=== PATIENT | male | born 1990 | race Hispanic/Latino ===

== ENCOUNTER 2018-01-05 18:53 | Emergency (ER) | payer OTHER ==
[2018-01-05 18:53] VITALS: BMI 21.2
--- NOTE | 2018-01-05 19:18 | ED PDOC ---
Arrival/HPI <Elie Calderón - Last Filed: 01/06/18 06:34> - General Historian: Patient <AzucenaAxel A - Last Filed: 01/07/18 19:36> <Alo Peña - Last Filed: 01/08/18 08:05> - General Time Seen by Provider: 01/05/18 19:10 - History of Present Illness Narrative History of Present Illness (Text): 01/05/18 19:15 27yo male bib [facility] for psychiatric evaluation. PEr patient, the called [facility] and told them that he wants to commit suicide. He however denies SI/HI, hallucination, any somatic complaint. Although per the RN, [facility] states patient attempted suicide by trying to hang himself and he have abrasion on his neck. ( Axel Zeng A) Past Medical History - Provider Review Nursing Documentation Reviewed: Yes - Tetanus Immunization Tetanus Immunization: Unknown - Past Medical History Past Medical History: No Previous - Psychiatric Hx Depression: No Hx Emotional Abuse: No Hx Physical Abuse: No Hx Substance Use: Yes (CANNABIS) - Past Surgical History Past Surgical History: No Previous - Suicidal Assessment Feels Threatened In Home Enviroment: No <Axel Zeng A - Last Filed: 01/07/18 19:36> Family/Social History - Physician Review Nursing Documentation Reviewed: Yes Family/Social History: Unknown Family HX Hx Alcohol Use: No Hx Substance Use: Yes (CANNABIS) Hx Substance Use Treatment: No <Axel Zeng A - Last Filed: 01/07/18 19:36> Allergies/Home Meds <Elie Calderón - Last Filed: 01/06/18 06:34> <Axel Zeng A - Last Filed: 01/07/18 19:36> <Alo Peña - Last Filed: 01/08/18 08:05> Allergies/Adverse Reactions: Allergies No Known Allergies Allergy (Verified 12/04/11 16:55) Home Medications: Home Meds Medication Instructions Recorded Confirmed No Known Home Med 12/04/11 01/05/18 Review of Systems - Physician Review All systems were reviewed & negative as marked: Yes - Review of Systems Constitutional: Normal Eyes: Normal ENT: Normal Respiratory: Normal Cardiovascular: Normal Gastrointestinal: Normal Genitourinary Male: Normal Musculoskeletal: Normal Skin: Normal Neurological: Normal Endocrine: Normal Hemo/Lymphatic: Normal Psychiatric: Suicidal Ideation <Diru,Happiness A - Last Filed: 01/07/18 19:36> Physical Exam Vital Signs Reviewed: Yes Temperature: Afebrile Blood Pressure: Normal Pulse: Regular Respiratory Rate: Normal Appearance: Positive for: Well-Appearing, Non-Toxic, Comfortable Pain Distress: None Mental Status: Positive for: Alert and Oriented X 3 - Systems Exam Head: Present: Atraumatic, Normocephalic Pupils: Present: PERRL Extroacular Muscles: Present: EOMI Conjunctiva: Present: Normal Mouth: Present: Moist Mucous Membranes Neck: Present: Normal Range of Motion Respiratory/Chest: Present: Clear to Auscultation, Good Air Exchange. No: Respiratory Distress, Accessory Muscle Use Cardiovascular: Present: Regular Rate and Rhythm, Normal S1, S2. No: Murmurs Abdomen: No: Tenderness, Distention, Peritoneal Signs Back: Present: Normal Inspection Upper Extremity: Present: Normal Inspection. No: Cyanosis, Edema Lower Extremity: Present: Normal Inspection. No: Edema Neurological: Present: GCS=15, CN II-XII Intact, Speech Normal Skin: Present: Warm, Dry, Normal Color, Abrasion (Superficial linear abrasion noted on neck and nasal bridge. Healing abrasion also noted on right posterior distal upper arm). No: Rashes Psychiatric: Present: Alert, Oriented x 3, Normal Insight, Normal Concentration <Diru,Happiness A - Last Filed: 01/07/18 19:36> Vital Signs Temp Pulse Resp BP Pulse Ox 01/06/18 10:21 98.2 F 82 18 112/72 100 01/06/18 10:20 98.2 F 82 18 112/72 100 01/06/18 06:34 98.2 F 75 18 110/62 99 01/06/18 04:01 98.3 F 82 18 105/55 L 100 01/06/18 01:58 97.8 F 88 20 104/63 98 01/06/18 00:21 97.6 F 84 18 100/73 100 01/05/18 22:00 98.0 F 88 18 110/73 100 01/05/18 19:23 97.9 F 80 18 132/78 98 Medical Decision Making <Elie Calderón - Last Filed: 01/06/18 06:34> <Diru,Happiness A - Last Filed: 01/07/18 19:36> <MarianaAltagraciaDanechana - Last Filed: 01/08/18 08:05> ED Course and Treatment: 01/06/18 06:34 patient is indicated to be accepted by [facility]. (Elie Calderón) 01/05/18 19:33 EKG NSR @61bpm 01/05/18 21:21 PT was bib EMS for psychiatric evaluation s/p suicidal attempt. He was calm in ED. Lab reviewed. UDS + Cocaine and Marijuana. Medically cleared for psychiatric evaluation Chest xray- No acute disease He was seen in ED by [facility] screendes Apple, who DC with Dr. Nova and she wants pt to be screened by [facility]. 01/06/18 00:33 PT remain calm and comfortable in ED. He was endorsed to Dr. Stringer to f/u and dispo. (Axel Zeng A) - Lab Interpretations Lab Results: 01/05/18 19:24 01/05/18 19:24 Lab Results 01/05/18 22:01: Urine Opiates Screen Negative, Urine Methadone Screen Negative, Ur Barbiturates Screen Negative, Ur Phencyclidine Scrn Negative, Ur Amphetamines Screen Negative, U Benzodiazepines Scrn Negative, U Oth Cocaine Metabols Positive H, U Cannabinoids Screen Positive H 01/05/18 22:01: Urine Color Yellow, Urine Appearance Sl cloudy, Urine pH 7.0, Ur Specific [place] 1.010, Urine Protein Negative, Urine Glucose (UA) Negative, Urine Ketones Negative, Urine Blood Trace-intact H, Urine Nitrate Negative, Urine Bilirubin Negative, Urine Urobilinogen 1.0 H, Ur Leukocyte Esterase Negative, Urine RBC 1 - 3, Urine WBC Negative, Ur Epithelial Cells 0 - 2 01/05/18 19:24: Alcohol, Quantitative < 10 01/05/18 19:24: Salicylates < 1 L, Acetaminophen < 10.0 L 01/05/18 19:24: Sodium 140, Potassium 3.8, Chloride 103, Carbon Dioxide 29, Anion Gap 12, BUN 16, Creatinine 1.0, Est GFR ( Amer) > 60, Est GFR (Non- Af Amer) > 60, Random Glucose 88, Calcium 9.3, Magnesium 2.4 H, Total Bilirubin 1.1, AST 32, ALT 34, Alkaline Phosphatase 65, Total Protein 7.3, Albumin 4.4, Globulin 2.9, Albumin/Globulin Ratio 1.5 01/05/18 19:24: WBC 5.6, RBC 4.73, Hgb 14.6, Hct 41.9 L, MCV 88.6, MCH 30.9, MCHC 34.8, RDW 12.8, Plt Count 197, MPV 9.7, Gran % 57.0, Lymph % (Auto) 32.2, [place] % (Auto) 8.9 H, Eos % (Auto) 1.2 L, Baso % (Auto) 0.7, Gran # 3.20, Lymph # (Auto) 1.8, [place] # (Auto) 0.5, Eos # (Auto) 0.1, Baso # (Auto) 0.04 - RAD Interpretation Radiology Orders: 01/05/18 19:24 CHEST PORTABLE [RAD] Stat - PA / [employer] TILE FLOOR LAYER / Resident Statement MD/DO has reviewed & agrees with the documentation as recorded. <Alo Peña - Last Filed: 01/08/18 08:05> Disposition/Present on Arrival <Elie Calderón - Last Filed: 01/06/18 06:34> - Present on Arrival Any Indicators Present on Arrival: No History of DVT/PE: No History of Uncontrolled Diabetes: No Urinary Catheter: No History of Decub. Ulcer: No History Surgical Site Infection Following: None - Disposition Have Diagnosis and Disposition been Completed?: Yes Disposition Time: 04:00 <Axel Zeng - Last Filed: 01/07/18 19:36> <Alo Peña - Last Filed: 01/08/18 08:05> - Disposition Diagnosis: Suicidal ideation Disposition: HOME/ ROUTINE Condition: GOOD Discharge Instructions (ExitCare): Suicide Prevention Additional Instructions: DELMI MURPHY, thank you for letting us take care of you today. Your provider was Chary Choudhury MD and you were treated for PSYCH EVAL. The emergency medical care you received today was directed at your acute symptoms. If you were prescribed any medication, please fill it and take as directed. It may take several days for your symptoms to resolve. Return to the Emergency Department if your symptoms worsen, do not improve, or if you have any other problems. Please contact your doctor or call one of the physicians/clinics you have been referred to that are listed on the Patient Visit Information form that is included in your discharge packet. Bring any paperwork you were given at discharge with you along with any medications you are taking to your follow up visit. Our treatment cannot replace ongoing medical care by a primary care provider outside of the emergency department. Thank you for allowing the [facility] team to be part of your care today. If you had an X-Ray or CT scan: A Radiologist will review the ED reading if any change in treatment is needed we will contact you. If you had a blood, urine, or wound culture: It will take several days for the results, if any change in treatment is needed we will contact you. If you had an STI test: It will take 48 hours for the results. Please call after 1 week if you have not heard back. Please follow up with outpatient psych. Forms: [employer] ([place] T[place]an)
[2018-01-05 19:38] LABS: BASO # 0.04 K/mm3 (0.0-2.0); BASO % 0.7 % (0.0-3.0); EOS # 0.1 (0.0-0.7); EOS % 1.2 % (1.5-5.0); GRAN # 3.2 (1.4-6.5); HEMOGLOBIN 14.6 g/dL (14.0-18.0); LYMPH # 1.8 (1.2-3.4); LYMPH % 32.2 % (22.0-35.0); MEAN CELL VOLUME 88.6 fl (80.0-105.0); MEAN CORPUSCULAR HEMOGLOBIN 30.9 pg (25.0-35.0); MEAN CORPUSCULAR HGB CONC 34.8 g/dl (31.0-37.0); MEAN PLATELET VOLUME 9.7 fl (7.0-11.0); MONO # 0.5 (0.1-0.6); MONO % 8.9 % (1.0-6.0); RBC 4.73 10^6/uL (3.5-6.1); RED CELL DISTRIBUTION WIDTH 12.8 % (11.5-14.5); WHITE BLOOD COUNT 5.6 10^3/ul (4.5-11.0)
[2018-01-05 19:51] LABS: ACETAMINOPHEN < 10.0 ug/ml (10.0-20.0); SALICYLATE < 1 mg/dL (2.0-20.0)
[2018-01-05 19:52] LABS: ALB/GLOB RATIO 1.5 (1.1-1.8); ALBUMIN 4.4 g/dL (3.0-4.8); ALT/SGPT 34 U/L (7-56); AST/SGOT 32 U/L (17-59); BLOOD UREA NITROGEN 16 mg/dL (7-21); CALCIUM 9.3 mg/dL (8.4-10.5); GFR AFRICAN-AMERICAN > 60; GFR NON-AFRICAN AMERICAN > 60
[2018-01-05 22:29] LABS: BARBITURATES, UR NEGATIVE (NEGATIVE); BENZODIAZEPINES, UR NEGATIVE (NEGATIVE); OPIATES, UR NEGATIVE (NEGATIVE); PHENCYCLIDINE, UR NEGATIVE (NEGATIVE)
[2018-01-05 22:34] LABS: URINE BILIRUBIN NEGATIVE (NEGATIVE); URINE BLOOD TRACE-INTACT (NEGATIVE); URINE GLUCOSE (UA) NEGATIVE (NEGATIVE); URINE LEUKOCYTE ESTERASE NEGATIVE Leu/uL (NEGATIVE); URINE PROTEIN NEGATIVE mg/dL (<30 mg/dL)
[2018-01-05 22:37] LABS: URINE APPEARANCE SL CLOUDY (CLEAR); URINE COLOR YELLOW (YELLOW)
[2018-01-05 22:58] LABS: URINE EPITHELIAL CELLS 0 - 2 /hpf (0-5); URINE WBC NEGATIVE /hpf (0-6)
[2018-01-06 04:02] VITALS: RESP 18
[2018-01-06 06:34] VITALS: TEMP 98.2
--- NOTE | 2018-01-06 07:20 | ED PDOC ---
Physical Exam Vital Signs Reviewed: Yes Vital Signs Temp Pulse Resp BP Pulse Ox 01/06/18 06:34 98.2 F 75 18 110/62 99 01/06/18 04:01 98.3 F 82 18 105/55 L 100 01/06/18 01:58 97.8 F 88 20 104/63 98 01/06/18 00:21 97.6 F 84 18 100/73 100 01/05/18 22:00 98.0 F 88 18 110/73 100 01/05/18 19:23 97.9 F 80 18 132/78 98 Temperature: Afebrile Blood Pressure: Normal Pulse: Regular Respiratory Rate: Normal Appearance: Positive for: Well-Appearing, Non-Toxic, Comfortable Pain Distress: None Mental Status: Positive for: Alert and Oriented X 3 - Systems Exam Head: Present: Atraumatic, Normocephalic Pupils: Present: PERRL Extroacular Muscles: Present: EOMI Conjunctiva: Present: Normal Neck: Present: Normal Range of Motion Respiratory/Chest: Present: Clear to Auscultation, Good Air Exchange. No: Respiratory Distress, Accessory Muscle Use Cardiovascular: Present: Regular Rate and Rhythm, Normal S1, S2. No: Murmurs Abdomen: No: Tenderness, Distention, Peritoneal Signs Back: Present: Normal Inspection Upper Extremity: Present: Normal Inspection. No: Cyanosis, Edema Lower Extremity: Present: Normal Inspection. No: Edema Neurological: Present: GCS=15, CN II-XII Intact, Speech Normal Skin: Present: Warm, Dry, Normal Color, Other (Superficial linear abrasion noted on neck and nasal bridge. Healing abrasion also noted on right posterior distal upper arm.). No: Rashes Psychiatric: Present: Alert, Oriented x 3, Normal Insight, Normal Concentration Medical Decision Making ED Course and Treatment: 01/06/18 07:10 Case endorsed to me by Dr. Calderón for awaiting evaluation by psychiatrist, reassessment and final disposition. Patient is a 27 year old male presented to the Emergency department for psychiatric evaluation after suicidal attempt. Patient is currently resting in bed and is in no acute distress. Patient currently denies any new complaints. 01/06/18 08:[address] evaluated by psychiatrist Dr. Nova, who believes patient is cleared for discharge with follow-up instructions to outpatient psychiatry clinic. 01/06/18 10:15 Patient was re-evaluated by [facility] and is psychiatrically cleared for discharge. Patient will be referred to follow-up with outpatient psychiatry clinic. Patient is currently resting in bed in no acute distress. Patient denies any new complaints, denies suicidal and homicidal ideation. Patient is medically cleared to be discharged. Will discharge patient with follow-up instructions. - Lab Interpretations Lab Results: 01/05/18 19:24 01/05/18 19:24 Lab Results 01/05/18 22:01: Urine Opiates Screen Negative, Urine Methadone Screen Negative, Ur Barbiturates Screen Negative, Ur Phencyclidine Scrn Negative, Ur Amphetamines Screen Negative, U Benzodiazepines Scrn Negative, U Oth Cocaine Metabols Positive H, U Cannabinoids Screen Positive H 01/05/18 22:01: Urine Color Yellow, Urine Appearance Sl cloudy, Urine pH 7.0, Ur Specific [place] 1.010, Urine Protein Negative, Urine Glucose (UA) Negative, Urine Ketones Negative, Urine Blood Trace-intact H, Urine Nitrate Negative, Urine Bilirubin Negative, Urine Urobilinogen 1.0 H, Ur Leukocyte Esterase Negative, Urine RBC 1 - 3, Urine WBC Negative, Ur Epithelial Cells 0 - 2 01/05/18 19:24: Alcohol, Quantitative < 10 01/05/18 19:24: Salicylates < 1 L, Acetaminophen < 10.0 L 01/05/18 19:24: Sodium 140, Potassium 3.8, Chloride 103, Carbon Dioxide 29, Anion Gap 12, BUN 16, Creatinine 1.0, Est GFR ( Amer) > 60, Est GFR (Non- Af Amer) > 60, Random Glucose 88, Calcium 9.3, Magnesium 2.4 H, Total Bilirubin 1.1, AST 32, ALT 34, Alkaline Phosphatase 65, Total Protein 7.3, Albumin 4.4, Globulin 2.9, Albumin/Globulin Ratio 1.5 01/05/18 19:24: WBC 5.6, RBC 4.73, Hgb 14.6, Hct 41.9 L, MCV 88.6, MCH 30.9, MCHC 34.8, RDW 12.8, Plt Count 197, MPV 9.7, Gran % 57.0, Lymph % (Auto) 32.2, [place] % (Auto) 8.9 H, Eos % (Auto) 1.2 L, Baso % (Auto) 0.7, Gran # 3.20, Lymph # (Auto) 1.8, [place] # (Auto) 0.5, Eos # (Auto) 0.1, Baso # (Auto) 0.04 - RAD Interpretation Radiology Orders: 01/05/18 19:24 CHEST PORTABLE [RAD] Stat - Scribe Statement The provider has reviewed the documentation as recorded by the Scribe Maite Walker. All medical record entries made by the Scribe were at my direction and personally dictated by me. I have reviewed the chart and agree that the record accurately reflects my personal performance of the history, physical exam, medical decision making, and the department course for this patient. I have also personally directed, reviewed, and agree with the discharge instructions and disposition. Disposition/Present on Arrival - Present on Arrival Any Indicators Present on Arrival: No History of DVT/PE: No History of Uncontrolled Diabetes: No Urinary Catheter: No History of Decub. Ulcer: No History Surgical Site Infection Following: None - Disposition Have Diagnosis and Disposition been Completed?: Yes Diagnosis: Suicidal ideation Disposition: HOME/ ROUTINE Disposition Time: 10:20 Condition: GOOD Discharge Instructions (ExitCare): Suicide Prevention Additional Instructions: DELMI MURPHY, thank you for letting us take care of you today. Your provider was Chary Choudhury MD and you were treated for PSYCH EVAL. The emergency medical care you received today was directed at your acute symptoms. If you were prescribed any medication, please fill it and take as directed. It may take several days for your symptoms to resolve. Return to the Emergency Department if your symptoms worsen, do not improve, or if you have any other problems. Please contact your doctor or call one of the physicians/clinics you have been referred to that are listed on the Patient Visit Information form that is included in your discharge packet. Bring any paperwork you were given at discharge with you along with any medications you are taking to your follow up visit. Our treatment cannot replace ongoing medical care by a primary care provider outside of the emergency department. Thank you for allowing the [facility] team to be part of your care today. If you had an X-Ray or CT scan: A Radiologist will review the ED reading if any change in treatment is needed we will contact you. If you had a blood, urine, or wound culture: It will take several days for the results, if any change in treatment is needed we will contact you. If you had an STI test: It will take 48 hours for the results. Please call after 1 week if you have not heard back. Please follow up with outpatient psych. Forms: [employer] (Lebanese)
--- NOTE | 2018-01-06 07:23 | RAD ---
HISTORY: Admission. COMPARISON: 04/20/2016 FINDINGS: LUNGS: No active pulmonary disease. PLEURA: No significant pleural effusion identified, no pneumothorax apparent. CARDIOVASCULAR: Normal. OSSEOUS STRUCTURES: No significant abnormalities. VISUALIZED UPPER ABDOMEN: Normal. OTHER FINDINGS: None. IMPRESSION: No active disease. No significant interval change compared to the prior examination(s).
[2018-01-06 10:30] VITALS: BP 112/72; PULSE 82; O2SAT 100
--- NOTE | 2018-01-06 13:01 | CARD ---
APPROVED REPORT EKG Measurement Heart [id number] <Conclusion> Normal sinus rhythm with sinus arrhythmia Normal ECG
== END 2018-01-06 10:20 | disposition home or self-care (01) ==
LOC: ED 18:53
DX: R45.851 Suicidal ideations (principal); F12.10 Cannabis abuse, uncomplicated